=== PATIENT | male | born 1980 | race Asian ===

== ENCOUNTER 2018-01-24 18:39 | Emergency (ER) | payer OTHER ==
[~2018-01-24] VITALS: Ht 180.3 cm; Wt 88.6 kg
[2018-01-24 21:02] LABS: APPEARANCE,URINE CLEAR (CLEAR); BILIRUBIN,URINE NEGATIVE (NEGATIVE); GLUCOSE, URINE (UA) >=1000 mg/dL (NEGATIVE); KETONES,URINE NEGATIVE (NEGATIVE); LEUKOCYTE ESTERASE ,URINE NEGATIVE (NEGATIVE); NITRATE,URINE NEGATIVE (NEGATIVE); OCCULT BLOOD,URINE NEGATIVE (NEGATIVE); PH,URINE 5.5 (5.0-8.0); PROTEIN,URINE NEGATIVE (NEGATIVE); UROBILINOGEN,URINE 0.2 mg/dL (<=1.0)
[2018-01-24 21:14] LABS: GLUCOSE,POINT OF CARE 409 MG/DL (70-110)
[2018-01-24 21:17] LABS: BACTERIA,URINE None Seen /HPF (None Seen); RBC,URINE None Seen /HPF (0-2); SQUAMOUS EPITHELIAL CELL,UR Rare /LPF (None Seen); WBC,URINE None Seen /HPF (0-5)
[2018-01-24] MEDS ORDERED: FLUCONAZOLE 150 MG TABLET PO ONE (22:00)
[2018-01-24 22:17] VITALS: BP 129/89
== END 2018-01-24 22:18 | disposition home or self-care (01) ==
LOC: EMS 18:41
DX: B37.9 Candidiasis, unspecified (principal); E11.9 Type 2 diabetes mellitus without complications
CPT/HCPCS: 87210; 87491; 87591; 99284